=== PATIENT | male | born 1955 ===

== ENCOUNTER 2025-05-06 12:00 | Inpatient (IN) | payer OTHER ==
[~2025-05-06] VITALS: Ht 162.6 cm; Wt 99.8 kg
[2025-05-06] MEDS ORDERED: LOSARTAN POTASS50 MG (12:36)
[2025-05-06] MEDS ORDERED: LEVO-T50 MCG (12:36)
[2025-05-06] MEDS ORDERED: ATORVASTATIN CA20 MG (12:36)
[2025-05-06] MEDS ORDERED: PREVACID30 MG (12:36)
[2025-05-06] MEDS ORDERED: METFORMIN HCL500 M3 (12:37)
[2025-05-06] MEDS ORDERED: TAMS0.4C (12:37)
[2025-05-06] MEDS ORDERED: GLIMEPIRIDE2 M1 (12:37)
[2025-05-06] MEDS ORDERED: KETOROLAC TROMET3 ML (12:38)
[2025-05-06] MEDS ORDERED: FENOFIBRATE 160MG (12:38)
[2025-05-06] MEDS ORDERED: COSOPT PF EYE1 EACH (12:38)
[2025-05-06] MEDS ORDERED: SODIUM CHLORIDE (12:39)
[2025-05-06] MEDS ORDERED: PREDNISOLONE ACE5 M1 (12:40)
[2025-05-06] MEDS ORDERED: OFLOXACIN5 M1 (12:40)
[2025-05-06 12:45] VITALS: BP 137/81
[2025-05-13] MEDS ORDERED: CEFTRIAXONE SODIUM 2,000 MG VIAL ONE (06:15)
[2025-05-13] MEDS ORDERED: METRONIDAZOLE/SODIUM CHLORIDE 500 MG/100 ML PIGGYBACK IV ONE (06:15)
[2025-05-13] MEDS ORDERED: BUPIVACAINE HCL/Mpf 0.5% 10ML VIAL ONE (07:09)
[2025-05-13] MEDS ORDERED: LIDOCAINE HCL 1%/EPINEPHRINE 20ML VIAL IJ ONE (07:09)
[2025-05-13] MEDS ORDERED: SUGAMMADEX SODIUM 200 MG/2 ML VIAL IV ONE (10:16)
[2025-05-13] MEDS ORDERED: ONDANSETRON HCL 2 MG/ML VIAL IV PRN (13:30)
[2025-05-13] MEDS ORDERED: MORPHINE SULFATE 4 MG/ML CARTRIDGE IV PRN (13:30)
[2025-05-13] MEDS ORDERED: RINGERS SOLUTION,LACTATED 1,000 ML IV SCH (13:30)
[2025-05-13] MEDS ORDERED: OxyCODONE HCL 5 MG TABLET (ROXICODONE) PO PRN (13:30)
[2025-05-13] MEDS ORDERED: DEXTROSE 50 % IN WATER 0.5 G/ML DISP.SYRIN IV PRN (13:30)
[2025-05-13] MEDS ORDERED: ACETAMINOPHEN 500 MG GEL..CAP PO SCH (14:00)
[2025-05-13 15:15] LABS: BASO % 0.2 % (0.1-1.2); EOS # 0.00 (0.04-0.54); EOS % 0.0 % (0.7-7.0); LYMPH # 1.14 (1.18-3.74); LYMPH % 8.5 % (19.3-53.1); MEAN PLATELET VOLUME 8.70 fl (9.4-12.4); MONO # 0.74 (0.24-0.82); MONO % 5.5 % (4.7-12.5); NEUT # 11.43 (1.56-6.13); NEUT % 85.6 % (34.0-71.1); RED CELL DISTRIBUTION WIDTH 14.2 % (11.6-14.4)
[2025-05-13] MEDS ORDERED: GABAPENTIN 300 MG CAPSULE PO SCH (17:00)
[2025-05-13] MEDS ORDERED: METOCLOPRAMIDE HCL 5 MG/ML VIAL IV SCH (17:00)
[2025-05-13] MEDS ORDERED: HYOSCYAMINE SULFATE 0.125 MG TAB.SUBL SL SCH (17:00)
[2025-05-13] MEDS ORDERED: CELECOXIB 200 MG CAPSULE PO SCH (17:00)
[2025-05-13] MEDS ORDERED: SIMETHICONE 125 MG CAPSULE PO SCH (17:00)
[2025-05-13] MEDS ORDERED: CELECOXIB 200 MG CAPSULE PO ONE (17:14)
[2025-05-13] MEDS ORDERED: SIMETHICONE 125 MG CAPSULE PO ONE (17:14)
[2025-05-13] MEDS ORDERED: METOCLOPRAMIDE HCL 5 MG/ML VIAL ONE (17:14)
[2025-05-13] MEDS ORDERED: HYOSCYAMINE SULFATE 0.125 MG TAB.SUBL ONE (17:14)
[2025-05-13] MEDS ORDERED: GABAPENTIN 300 MG CAPSULE PO ONE (17:14)
[2025-05-13 18:04] VITALS: BP 146/93; O2SAT 95
[2025-05-13] MEDS ORDERED: FAMOTIDINE/PF 20 MG/2 ML VIAL IV PUSH SCH (21:00)
[2025-05-13 22:01] VITALS: BP 127/84
[2025-05-14 00:53] VITALS: BP 126/76; O2SAT 97
[2025-05-14 06:34] LABS: BASO % 0.2 % (0.1-1.2); EOS # 0.00 (0.04-0.54); EOS % 0.0 % (0.7-7.0); LYMPH # 1.49 (1.18-3.74); LYMPH % 16.9 % (19.3-53.1); MEAN PLATELET VOLUME 9.00 fl (9.4-12.4); MONO # 0.60 (0.24-0.82); MONO % 6.8 % (4.7-12.5); NEUT # 6.67 (1.56-6.13); NEUT % 75.9 % (34.0-71.1); RED CELL DISTRIBUTION WIDTH 14.1 % (11.6-14.4)
[2025-05-14 06:57] LABS: BUN CREA RATIO 9.0 (7.0-25.0); CREATININE SERUM 1.09 mg/dL (0.70-1.30); GFR 67.07; GLUCOSE FASTING 142.0 mg/dL (65-100); OSMOLALITY SERUM 283.0 MOSM/KG (275-295)
[2025-05-14] MEDS ORDERED: LACTOBACILLUS ACIDOPHILUS 1 CAP CAP PO SCH (09:00)
[2025-05-14] MEDS ORDERED: LACTULOSE 20 G/30 ML BLIST.PACK PO SCH (09:00)
[2025-05-14 16:31] VITALS: BP 152/89; O2SAT 96
[2025-05-14] MEDS ORDERED: ENOXAPARIN SODIUM 40 MG/0.4 ML SYRINGE SUBCUTANEO SCH (17:00)
[2025-05-15 01:33] VITALS: BP 140/79; O2SAT 95
[2025-05-15 06:43] LABS: BASO % 0.3 % (0.1-1.2); EOS # 0.09 (0.04-0.54); EOS % 0.8 % (0.7-7.0); LYMPH # 1.27 (1.18-3.74); LYMPH % 10.8 % (19.3-53.1); MEAN PLATELET VOLUME 9.30 fl (9.4-12.4); MONO # 0.60 (0.24-0.82); MONO % 5.1 % (4.7-12.5); NEUT # 9.69 (1.56-6.13); NEUT % 82.6 % (34.0-71.1); RED CELL DISTRIBUTION WIDTH 14.4 % (11.6-14.4)
[2025-05-15 07:23] LABS: BUN CREA RATIO 14.0 (7.0-25.0); CREATININE SERUM 0.9 mg/dL (0.70-1.30); GFR 83.67; GLUCOSE FASTING 144.0 mg/dL (65-100); OSMOLALITY SERUM 284.0 MOSM/KG (275-295)
[2025-05-15] MEDS ORDERED: ENOXAPARIN SODIUM 40 MG/0.4 ML SYRINGE SUBCUTANEO SCH (09:00)
[2025-05-15 10:32] VITALS: BP 131/84; O2SAT 98
[2025-05-15 16:00] VITALS: BP 147/79; O2SAT 96
== END 2025-05-15 17:26 | disposition home or self-care (01) | DRG 331 ==
LOC: SURH 05-13 06:00 → O/R 05-13 06:00 → SURH 05-13 10:45
PROVIDERS: ADMIT Colon & Rectal Surgery; ATTEND Colon & Rectal Surgery
PROC: 07BB4ZZ Excision of Mesenteric Lymphatic, Percutaneous Endoscopic Approach (ICD-10-PCS; 2025-05-13)
PROC: 0DTF4ZZ Resection of Right Large Intestine, Percutaneous Endoscopic Approach (ICD-10-PCS; principal; 2025-05-13 10:45)
DX: C18.2 Malignant neoplasm of ascending colon (principal); Z86.0100 Personal history of colon polyps, unspecified; Z85.038 Personal history of other malignant neoplasm of large intestine